=== PATIENT | female | born 1950 | race Caucasian/White ===

== ENCOUNTER → 2020-08-10 | Outpatient (CLI) | payer MEDICARE, OTHER ==
[~2020-08-10] MED LIST: ASPIRIN E.C. 8181 MG PO; CELEBREX200 MG PO; COLACE 100100 MG/CAP PO; FLONASE NASAL S16 GM NS; FLONASEALLERGY NS; LIPITOR20 MG PO; LIPITOR40 MG PO; MOTRIN 800800 MG/TAB PO; NITROSTAT0.4 MG/TAB SL; PATADAY 2.5 ML2.5 ML OU; PATADAY5 ML OP; PERCOCET 325 MG1 TA2 PO; PRILOSEC10 MG PO; VITAMIN D; VITAMIN D PO; VITAMIN D31000 IU PO; ZYRTEC 10MG10 MG PO; ZYRTEC10 MG PO; cholecalciferol (vit
== END ==
LOC: MC.RAD 13:24
DX: Z12.31 Encounter for screening mammogram for malignant neoplasm of breast (principal)

== ENCOUNTER 2020-08-20 09:07 | Emergency (ER) | payer MEDICARE, OTHER ==
[~2020-08-20] VITALS: Ht 165.1 cm; Wt 103.2 kg
[~2020-08-20 09:07] MED LIST changes: -ASPIRIN E.C. 8181 MG PO; -COLACE 100100 MG/CAP PO; -FLONASE NASAL S16 GM NS; -FLONASEALLERGY NS; -LIPITOR20 MG PO; -MOTRIN 800800 MG/TAB PO; -NITROSTAT0.4 MG/TAB SL; -PATADAY 2.5 ML2.5 ML OU; -PATADAY5 ML OP; -PERCOCET 325 MG1 TA2 PO; -PRILOSEC10 MG PO; -VITAMIN D; -VITAMIN D PO; -VITAMIN D31000 IU PO; -ZYRTEC 10MG10 MG PO; -cholecalciferol (vit
[2020-08-20] MEDS ORDERED: PATADAY5 ML OP (09:23)
[2020-08-20] MEDS ORDERED: LIPITOR20 MG PO (09:23)
[2020-08-20] MEDS ORDERED: cholecalciferol (vit (09:23)
[2020-08-20] MEDS ORDERED: ZYRTEC 10MG10 MG PO (09:23)
[2020-08-20] MEDS ORDERED: FLONASE NASAL S16 GM NS (09:24)
[2020-08-20] MEDS ORDERED: VITAMIN D (09:24)
[2020-08-20 09:52] LABS: BASO # 0.1 (0.0-0.2); BASO % 0.7 % (0.0-2.0); EOS # 0.3 (0.0-0.7); GRAN % 58.6 % (42.2-75.2); HEMATOCRIT 43.4 % (37.0-47.0); HEMOGLOBIN 14.6 g/dl (12.5-16.0); LYMPH # 2.6 (1.2-3.4); LYMPH % 29.8 % (20.0-51.0); MEAN CELL VOLUME 89 fl (80.0-100.0); MEAN CORPUSCULAR HEMOGLOBIN 30 pg (27.0-31.0); MEAN CORPUSCULAR HGB CONC 34 g/dl (33.0-37.0); MEAN PLATELET VOLUME 11.6 fl (7.4-10.4); MONO # 0.7 (0.1-0.6); MONO % 7.7 % (1.7-9.3); PLATELET COUNT 209 K/mm3 (130-400); REDCELL DISTRIBUTION WIDTH-CV 13.4 % (11.5-14.5)
[2020-08-20 09:55] LABS: ALANINE AMINOTRANSFERASE 27 U/L (4-34); ALBUMIN 4.2 gm/dL (3.5-5.0); ALKALINE PHOSPHATASE 86 U/L (50-136); ANION GAP 7 mmol/L (7-16); AST,SGOT 24 U/L (15-37); BILIRUBIN,TOTAL 0.9 mg/dL (0.0-1.0); BLOOD UREA NITROGEN 21 mg/dL (7-17); CALCIUM 9.5 mg/dL (8.4-10.2); CARBON DIOXIDE 29 mmol/L (22-30); CHLORIDE 104 mmol/L (98-107); CREATININE, serum 0.85 (0.52-1.25); GLUCOSE 96 mg/dL (74-106); POTASSIUM 3.9 mmol/L (3.4-5.0); SODIUM 140 mmol/L (137-145); TOTAL PROTEIN 7.5 gm/dL (6.4-8.2)
[2020-08-20 09:56] LABS: C-REACTIVE PROTEIN < 0.5 mg/dL (0.0-0.9)
[2020-08-20 09:59] LABS: PROTHROMBIN TIME 11.6 SECONDS (9.7-12.8)
[2020-08-20 10:02] LABS: PARTIAL THROMBOPLASTIN TIME 27.4 SECONDS (26.0-37.0)
[2020-08-20 10:04] LABS: TROPONIN-I < 0.012 ng/mL (0.000-0.035)
[2020-08-20 10:20] LABS: D-DIMER < 200.00 ng/mLDDu (200-230)
[2020-08-20] MEDS ORDERED: NITROSTAT0.4 MG/TAB SL (13:19)
[2020-08-20 13:38] VITALS: BP 130/82; PULSE 73; TEMP 97.9
== END 2020-08-20 13:38 | disposition home or self-care (01) ==
LOC: COL.ER 09:07
PROVIDERS: Family Medicine
DX: R07.89 Other chest pain (principal); R06.02 Shortness of breath; E78.5 Hyperlipidemia, unspecified; Z79.899 Other long term (current) drug therapy

== ENCOUNTER 2020-09-20 08:15 | Day surgery (SDC) | payer MEDICARE, OTHER ==
[2020-09-20] VITALS (10 sets, daily range): BP systolic 92–132; BP diastolic 54–94; PULSE 57–67; TEMP 97.9
[~2020-09-20] VITALS: Ht 165.1 cm; Wt 105.8 kg
[~2020-09-20 08:15] MED LIST changes: +FLONASE NASAL S16 GM NS; +LIPITOR20 MG PO; +NITROSTAT0.4 MG/TAB SL; +PATADAY5 ML OP; +VITAMIN D; +ZYRTEC 10MG10 MG PO; +cholecalciferol (vit
[2020-09-20 09:27] LABS: HEMATOCRIT 40.9 % (37.0-47.0); HEMOGLOBIN 13.9 g/dl (12.5-16.0); MEAN CELL VOLUME 87 fl (80.0-100.0); MEAN CORPUSCULAR HEMOGLOBIN 30 pg (27.0-31.0); MEAN CORPUSCULAR HGB CONC 34 g/dl (33.0-37.0); MEAN PLATELET VOLUME 11.6 fl (7.4-10.4); PLATELET COUNT 221 K/mm3 (130-400); RED BLOOD COUNT 4.69 M/mm3 (4.10-5.30); REDCELL DISTRIBUTION WIDTH-CV 13.5 % (11.5-14.5)
[2020-09-20 09:33] LABS: INR 1.1 (0.8-3.0); PROTHROMBIN TIME 11.9 SECONDS (9.7-12.8)
[2020-09-20 09:36] LABS: CREATININE, serum 0.73 (0.52-1.25); PARTIAL THROMBOPLASTIN TIME 26.2 SECONDS (26.0-37.0); POTASSIUM 4.1 mmol/L (3.4-5.0)
[2020-09-20] MEDS ORDERED: ASPIRIN E.C. 8181 MG PO (09:58)
[2020-09-20] MEDS ORDERED: ZYRTEC 10MG10 MG PO (09:58)
[2020-09-20] MEDS ORDERED: VITAMIN D31000 IU PO (09:58)
[2020-09-20] MEDS ORDERED: LIPITOR20 MG PO (09:58)
[2020-09-20] MEDS ORDERED: PATADAY 2.5 ML2.5 ML OU (09:59)
[2020-09-20] MEDS ORDERED: FLONASEALLERGY NS (09:59)
--- NOTE | 2020-09-20 15:05 | NUR ---
DC instructions reviewed with pt, she expresses understanding. Air has been removed from TR band in 2 ml increments with no bleeding or complications. Site dressed with 2x2 and bandaid. Pt is steady on feet around room. Has tolerated PO without issue. IV DC'd with catheter intact and bleeding controlled at site. She is assited out to 's car with belongings.
== END 2020-09-20 15:05 | disposition home or self-care (01) ==
LOC: COL.CAR 08:15
PROVIDERS: Internal Medicine Cardiovascular Disease
DX: I77.1 Stricture of artery (principal); R07.89 Other chest pain; Z79.899 Other long term (current) drug therapy
CPT/HCPCS: J1644; J2250; J3010; J7030; Q9967

== ENCOUNTER 2020-10-01 06:43 | Day surgery (SDC) | payer MEDICARE, OTHER ==
[~2020-10-01] VITALS: Ht 165.1 cm; Wt 107.2 kg
[2020-10-01] VITALS (10 sets, daily range): BP systolic 102–134; BP diastolic 54–87; PULSE 53–92; TEMP 97.5–97.8
[~2020-10-01 06:43] MED LIST changes: +ASPIRIN E.C. 8181 MG PO; +FLONASEALLERGY NS; +PATADAY 2.5 ML2.5 ML OU; +VITAMIN D31000 IU PO
[2020-10-01] MEDS ORDERED: VITAMIN D PO (08:48)
[2020-10-01] MEDS ORDERED: PATADAY5 ML OP (08:51)
[2020-10-01] MEDS ORDERED: COLACE 100100 MG/CAP PO (08:52)
[2020-10-01] MEDS ORDERED: PRILOSEC10 MG PO (08:52)
--- NOTE | 2020-10-01 14:38 | NUR ---
Patient received post op from [facility] to room 323. Patient very sleepy, arousable. Vss on O2. Butler to DD. Ivf per orders. Abdominal lap site edges well approximated. Open to air. Will closely monitor spoke to who entered post op orders for patient
[2020-10-01] MEDS ORDERED: PERCOCET 325 MG1 TA2 PO (20:00)
[2020-10-01] MEDS ORDERED: MOTRIN 800800 MG/TAB PO (20:00)
--- NOTE | 2020-10-01 20:00 | NUR ---
Patient sitting up in chair. Much more awake. Tolerating clear liquids. Adequate urine from fountain. Ivf per orders. Minimal complaints of pain. Bedside report to Ruben who will resume cares.
--- NOTE | 2020-10-01 20:40 | NUR ---
Pt. sitting up in bed at this time. Pt. is A&OX3, assessment complete. IV to lt. hand patent, IV fluids infusing per orders. Pt. denies pain or other needs, call light within reach.
[2020-10-02 01:25] VITALS: BP 110/49; PULSE 62; TEMP 98.6
[2020-10-02 04:24] VITALS: BP 106/53; PULSE 55; TEMP 98.3
[2020-10-02 07:00] VITALS: BP 115/47; PULSE 66; TEMP 97.5
--- NOTE | 2020-10-02 08:20 | NUR ---
Patient up ambulating in halls independently with steady gait. Alert and oriented x3. Denies pain at this time. Lap sites with edges well approximated. Butler out this AM, has not been able to void yet. Denies needs at this time.
[2020-10-02 11:09] VITALS: BP 100/47; PULSE 61; TEMP 97.4
--- NOTE | 2020-10-02 12:35 | NUR ---
Discharge education provided to patient. Educated on when to call providers and patient states she has a follow up with Dr. Richmond in 2 wks. Educated on new medications and medication safety. All questions answered. INT discontinued to left hand; catheter tip intact. Denies further needs at this time. Patient out by wheelchair with surgical staff and family.
--- NOTE | 2020-10-02 12:52 | NUR ---
Electronic Field Service Engineer offered prayer and support with patient while spouse was in room.
== END 2020-10-02 12:35 | disposition home or self-care (01) ==
LOC: SDCO 06:43 → SURG 13:15 → SDCO 10-02 12:35
DX: N81.3 Complete uterovaginal prolapse (principal); E78.5 Hyperlipidemia, unspecified; M19.90 Unspecified osteoarthritis, unspecified site; E78.00 Pure hypercholesterolemia, unspecified; Z90.13 Acquired absence of bilateral breasts and nipples; Z79.82 Long term (current) use of aspirin; C54.1 Malignant neoplasm of endometrium; Z79.899 Other long term (current) drug therapy; Z82.49 Family history of ischemic heart disease and other diseases of the circulatory system; Z83.3 Family history of diabetes mellitus; Z80.3 Family history of malignant neoplasm of breast
CPT/HCPCS: OP; A4314; C1781; J0330; J0690; J1100; J1170; J1885; J2405; J2550; J2704; J2710; J3010; J7120